=== PATIENT | male | born 1985 | race Asian ===

== ENCOUNTER 2019-01-18 14:11 | Emergency (ER) | payer MEDICAID, OTHER ==
[~2019-01-18] VITALS: Ht 175.3 cm; Wt 79.4 kg
[2019-01-18 15:13] VITALS: BP 140/73
[2019-01-18] MEDS ORDERED: LORazepam 0.5 MG TAB PO ONE (15:45)
== END 2019-01-18 16:04 | disposition home or self-care (01) ==
LOC: ER 14:11
DX: F41.9 Anxiety disorder, unspecified (principal); I10 Essential (primary) hypertension

== ENCOUNTER 2019-01-28 22:19 | Emergency (ER) | payer OTHER ==
[~2019-01-28] VITALS: Ht 175.3 cm; Wt 81.6 kg
[2019-01-28 22:38] VITALS: BP 140/99
== END 2019-01-29 00:47 | disposition left against medical advice (07) ==
LOC: ER 22:20
DX: F41.9 Anxiety disorder, unspecified (principal); Z76.0 Encounter for issue of repeat prescription; Z53.21 Procedure and treatment not carried out due to patient leaving prior to being seen by health care provider

== ENCOUNTER 2019-01-29 04:36 | Emergency (ER) | payer OTHER ==
[~2019-01-29] VITALS: Ht 175.3 cm; Wt 81.6 kg
[2019-01-29 04:45] VITALS: BP 138/100
== END 2019-01-29 09:00 | disposition home or self-care (01) ==
LOC: ER 04:36
DX: F41.9 Anxiety disorder, unspecified (principal); Z76.0 Encounter for issue of repeat prescription

== ENCOUNTER 2019-06-28 05:44 | Emergency (ER) | payer OTHER ==
[~2019-06-28] VITALS: Ht 175.3 cm; Wt 83.9 kg
[2019-06-28] MEDS ORDERED: KETOROLAC TROMETH 60MG/2ML VIAL IM ONE (08:00)
[2019-06-28 08:22] VITALS: BP 142/98
[2019-06-28] MEDS ORDERED: LORazepam 0.5 MG TAB PO ONE (08:30)
== END 2019-06-28 09:45 | disposition home or self-care (01) ==
LOC: ER 05:44
DX: F41.9 Anxiety disorder, unspecified (principal)

== ENCOUNTER 2022-08-28 14:48 | Emergency (ER) | payer OTHER ==
[~2022-08-28] VITALS: Ht 180.3 cm; Wt 92.0 kg
[2022-08-28] MEDS ORDERED: LORazepam 2MG/ML-1ML VIAL IM ONE (17:30)
[2022-08-28 17:44] VITALS: BP 131/83
== END 2022-08-28 18:41 | disposition home or self-care (01) ==
LOC: ER 14:48
DX: F41.9 Anxiety disorder, unspecified (principal); Z88.8 Allergy status to other drugs, medicaments and biological substances
CPT/HCPCS: 93005; 96372; 99283; J2060

== ENCOUNTER 2022-10-11 11:27 | Emergency (ER) | payer OTHER ==
[~2022-10-11] VITALS: Ht 180.3 cm; Wt 87.7 kg
[2022-10-11] MEDS ORDERED: LORazepam 0.5 MG TAB PO ONE (13:00)
[2022-10-11] MEDS ORDERED: MAALOX PLUS or MAALOX 30 ML PO ONE (13:00)
[2022-10-11 13:02] VITALS: BP 142/78
[2022-10-11 14:49] LABS: Eosinophils # (auto) 0.1 10 ^3/uL (0-0.8)
[2022-10-11 14:51] LABS: Basophils # (auto) 0 10 ^3/uL (0-0.2); Basophils % (auto) 0.5 % (0.0-2.0); Hematocrit 50.2 % (41.0-53.0); Hemoglobin 17.9 g/dL (13.5-17.5); Lymphocytes # (auto) 1.6 10 ^3/uL (0.4-5.4); Lymphocytes % (auto) 19.8 % (10.0-50.0); Mean Corpuscular Hemoglobin 31.3 pg (28.0-32.0); Mean Corpuscular Hgb Conc. 35.6 g/dL (32.0-36.0); Monocytes # (auto) 0.4 10 ^3/uL (0-1.3); Monocytes % (auto) 5.3 % (0.0-12.0); Neutrophils # (auto) 6.1 10 ^3/uL (1.6-8.6); Neutrophils % (auto) 73.4 % (37.0-80.0); Nucleated Red Blood Cells % 0.1 %; Red Blood Cells 5.71 10^6/uL (4.5-5.90); White Blood Cell 8.3 10^3/uL (4.4-10.8)
[2022-10-11 15:09] LABS: Albumin 4.7 g/dL (3.4-5.0); Calcium 9.6 mg/dL (8.5-10.1); Potassium 4.1 mmol/L (3.5-5.1)
[2022-10-11 15:13] LABS: BUN/Creatinine Ratio 9.2 (10.0-20.0); Bilirubin, Total 0.9 mg/dL (0.2-1.0)
[2022-10-11] MEDS ORDERED: SUCR1TAB22 OR (15:38)
[2022-10-11] MEDS ORDERED: HYDR25CA PO (15:38)
== END 2022-10-11 15:45 | disposition home or self-care (01) ==
LOC: ER 11:27
DX: F41.8 Other specified anxiety disorders (principal); K21.9 Gastro-esophageal reflux disease without esophagitis
CPT/HCPCS: 36415; 80053; 84484; 85025; 93005

== ENCOUNTER 2023-06-13 13:57 | Emergency (ER) | payer OTHER ==
[~2023-06-13] VITALS: Ht 175.3 cm; Wt 79.8 kg
[~2023-06-13 13:57] MED LIST: HYDR25CA PO; SUCR1TAB22 OR
[2023-06-13 15:12] VITALS: BP 102/75; PULSE 91; RESP 18; TEMP 97.3; O2SAT 96
[2023-06-13] MEDS ORDERED: SUCR1TAB22 OR (15:29)
[2023-06-13] MEDS ORDERED: HYDR50CA PO (15:29)
== END 2023-06-13 15:33 | disposition home or self-care (01) ==
LOC: ER 13:57
DX: F41.9 Anxiety disorder, unspecified (principal); Z76.0 Encounter for issue of repeat prescription; Z79.899 Other long term (current) drug therapy

== ENCOUNTER 2023-10-30 01:01 | Emergency (ER) | payer MEDICAID ==
[~2023-10-30] VITALS: Ht 175.3 cm; Wt 76.6 kg
[~2023-10-30 01:01] MED LIST changes: +HYDR50CA PO; -SUCR1TAB22 OR; +SUCR1TAB31 OR
[2023-10-30 01:14] VITALS: BP 142/94; PULSE 93; RESP 18; TEMP 98.6; O2SAT 98
[2023-10-30] MEDS ORDERED: SUCR1TAB31 PO (03:49)
[2023-10-30] MEDS ORDERED: HYDR50CA2 PO (03:49)
== END 2023-10-30 04:01 | disposition home or self-care (01) ==
LOC: ER 01:04
DX: F41.9 Anxiety disorder, unspecified (principal); K21.9 Gastro-esophageal reflux disease without esophagitis; F32.9 Major depressive disorder, single episode, unspecified; F15.90 Other stimulant use, unspecified, uncomplicated; Z76.0 Encounter for issue of repeat prescription; Z79.899 Other long term (current) drug therapy

== ENCOUNTER 2023-11-21 22:41 | Emergency (ER) | payer MEDICAID ==
[~2023-11-21] VITALS: Ht 175.3 cm; Wt 75.3 kg
[~2023-11-21 22:41] MED LIST changes: +HYDR50CA2 PO; +SUCR1TAB31 PO
[2023-11-22] MEDS: SUCRALFATE 1 GM/10 ML ORAL SUSP PO ONE (01:41)
[2023-11-22] MEDS: ALPRAZolam 0.5 MG TAB PO ONE (01:41)
[2023-11-22 01:45] VITALS: BP 142/100; PULSE 76; RESP 16; O2SAT 96
== END 2023-11-22 02:27 | disposition home or self-care (01) ==
LOC: ER 22:41
DX: F41.9 Anxiety disorder, unspecified (principal); R10.13 Epigastric pain; F32.9 Major depressive disorder, single episode, unspecified; K21.9 Gastro-esophageal reflux disease without esophagitis; F15.90 Other stimulant use, unspecified, uncomplicated; Z88.0 Allergy status to penicillin; Z79.899 Other long term (current) drug therapy

== ENCOUNTER 2023-11-25 20:29 | Emergency (ER) | payer MEDICAID ==
[~2023-11-25] VITALS: Ht 188 cm; Wt 66.8 kg
[2023-11-25 20:29] VITALS: BP 138/92; PULSE 118; RESP 18; O2SAT 95
[2023-11-25] MEDS ORDERED: SUCR1TAB31 OR (22:30)
== END 2023-11-25 22:41 | disposition home or self-care (01) ==
LOC: ER 20:29
DX: K21.9 Gastro-esophageal reflux disease without esophagitis (principal); F15.10 Other stimulant abuse, uncomplicated; F41.9 Anxiety disorder, unspecified; F32.A Depression, unspecified; Z76.0 Encounter for issue of repeat prescription; Z88.0 Allergy status to penicillin; Z79.899 Other long term (current) drug therapy

== ENCOUNTER 2023-12-11 14:52 | Emergency (ER) | payer MEDICAID ==
[~2023-12-11] VITALS: Ht 172.7 cm; Wt 65.0 kg
[2023-12-11 16:36] VITALS: BP 120/74; PULSE 101; RESP 17; TEMP 98.9; O2SAT 98
[2023-12-11] MEDS ORDERED: NAPR-746 PO (17:17)
[2023-12-11] MEDS ORDERED: BACDST PO (17:17)
== END 2023-12-11 17:33 | disposition home or self-care (01) ==
LOC: ER 14:52
DX: L02.212 Cutaneous abscess of back [any part, except buttock and flank] (principal); K21.9 Gastro-esophageal reflux disease without esophagitis; F41.9 Anxiety disorder, unspecified; F32.9 Major depressive disorder, single episode, unspecified; F15.90 Other stimulant use, unspecified, uncomplicated; Z88.0 Allergy status to penicillin; Z79.899 Other long term (current) drug therapy

== ENCOUNTER 2024-04-15 07:22 | Emergency (ER) | payer MEDICAID ==
[~2024-04-15] VITALS: Ht 175.3 cm; Wt 75.0 kg
[~2024-04-15 07:22] MED LIST changes: +BACDST PO; +NAPR-746 PO
--- NOTE | 2024-04-15 07:42 | ED.PDOC ---
History of Present Illness HPI Comments 38 y.o male presents to the ED for an evaluation of multiple complaints. Patient states unspecified chest and abdominal pain associated with SOB but also mentions coming in for a medication refill of Lorazepam and is requesting pain medications. Patient has a medical history of anxiety, GERD, and depression. He reports currently being homeless. No other complaints at this time. Chief Complaint: Abdominal Pain Time Seen by MD: 07:36 Primary Care Provider: NONE Reviewed Notes: Nurses Notes, Medications, Allergies Allergies: Coded Allergies: Penicillins (Verified Allergy, Unknown, 11/21/23) Home Meds Active Scripts Naproxen (Naproxen) 500 Mg Tab, 500 MG PO BID, #30 TAB Prov:DERECK JACK 12/11/23 Sulfamethoxazole W/Trimethopri (Bactrim Ds Tablet) 1 Tab Tb, 1 TAB PO BID for 10 Days, #20 TAB Prov:DERECK JACK 12/11/23 Sucralfate (CARAFATE) 1 Gm Tab, 1 GM OR BID PRN, #30 TAB 0 Refills Prov:PAVAN YUNG 11/25/23 Hydroxyzine Pamoate (Hydroxyzine Pamoate) 50 Mg Cap, 1 CAP PO Q6HPRN, #12 CAP 0 Refills Prov:PAVAN YUNG 10/30/23 Sucralfate (CARAFATE) 1 Gm Tab, 1 GM PO BID, #30 TAB 0 Refills Prov:PAVAN YUNG 10/30/23 Hydroxyzine Pamoate (Vistaril) 50 Mg Cap, 1 CAP PO BID PRN, #20 CAP Prov:DERECK JACK 06/13/23 Sucralfate (CARAFATE) 1 Gm Tab, 1 GM OR BIDP PRN for 15 Days, #30 TAB Prov:DERECK JACK 06/13/23 Hydroxyzine Pamoate (Vistaril) 25 Mg Cap, 1 CAP PO BID PRN for 10 Days, #20 CAP 1 Refill Prov:GIRMA URIAS NP 10/11/22 Mode of Arrival: Ambulatory Timing: Came on: Gradually Duration: Since onset Past Medical History PAST MEDICAL HISTORY: Anxiety, Depression, GERD Surgical History: Denies all surgeries Family History Family History: Unknown Social History Smoker: Non-Smoker Alcohol: Occasionally Drugs: Methamphetamine Lives In: Homeless Constitutional: denies: chills, diaphoresis, fatigue, fever, malaise, sweats, weakness, others EENTM: denies: blurred vision, double vision, ear bleeding, ear discharge, ear drainage, ear pain, ear ringing, eye pain, eye redness, hearing loss, mouth pain, mouth swelling, nasal discharge, nose bleeding, nose congestion, nose pain, photophobia, tearing, throat pain, throat swelling, voice changes, others Respiratory: reports: shortness of breath; denies: cough, hemoptysis, orthopnea, SOB at rest, SOB with excertion, stridor, wheezing, others Cardiovascular: reports: chest pain; denies: dizzy spells, diaphoresis, Dyspnea on exertion, edema, irregular heart beat, left arm pain, lightheadedness, palpitations, PND, syncope, others Gastrointestinal: denies: abdomen distended, abdominal pain, blood streaked bowels, constipated, diarrhea, dysphagia, difficulty swallowing, hematemesis, melena, nausea, poor appetite, poor fluid intake, rectal bleeding, rectal pain, vomiting, others Genitourinary: denies: burning, dysuria, flank pain, frequency, hematuria, incontinence, penile discharge, penile sore, pain, testicle pain, testicle swelling, urgency, others Neurological: denies: dizziness, fainting, headache, left sided numbness, left sided weakness, numbness, paresthesia, pre-existing deficit, right sided numbness, right sided weakness, seizure, speech problems, tingling, tremors, weakness, others Musculoskeletal: denies: back pain, gout, joint pain, joint swelling, muscle pain, muscle stiffness, neck pain, others Integumetry: denies: bruises, change in color, change in hair/nails, dryness, laceration, lesions, lumps, rash, wounds, others Allergic/Immunocompromised: denies: Difficulty Healing, Frequent Infections, Hives, Itching, others Hematologic/Lymphatic: denies: anemia, blood clots, easy bleeding, easy bruising, swollen glands, others Endocrine: denies: excessive hunger, excessive sweating, excessive thirst, excessive urination, flushing, intolerance to cold, intolerance to heat, unexplained weight gain, unexplained weight loss, others Psychiatric: reports: anxiety; denies: bipolar disorder, depression, hopeless, panic disorder, schizophrenia, sleepless, suicidal, others All Other Systems: Reviewed and Negative Physical Exam General Appearance: Moderate Distress HEENT: Normal ENT Inspection, Pharynx Normal, TMs Normal Neck: Full Range of Motion, Non-Tender, Normal, Normal Inspection Respiratory: Chest Non-Tender, Lungs Clear, No Accessory Muscle Use, No Respiratory Distress, Normal Breath Sounds Cardiovascular: No Edema, No JVD, No Murmur, No Gallop, Normal Peripheral Pulses, Regular Rate/Rhythm Breast Exam: Deferred Gastrointestinal: No Organomegaly, Non Tender, No Pulsatile Mass, Normal Bowel Sounds, Soft Genitalia: Deferred Pelvic: Deferred Rectal: Deferred Extremities: No calf tenderness, Normal capillary refill, Normal inspection, Normal range of motion, Non-tender, No pedal edema Musculoskeletal : Apperance: Normal Neurologic: Alert, incubator operator II-XII nml as Tested, No Motor Deficits, Normal Affect, Normal Mood, No Sensory Deficits Cerebellar Function: Normal Reflexes: Normal Skin: Dry, Normal Color, Warm Peripheral Pulses: 3+ Radial (R), 3+ Radial (L) Lymphatic: No Adenopathy Was a procedure done? Was a procedure done?: No Differential Dx Considerations may include: Viral syndrome, anxiety, gastrointestinal X-Ray, Labs, Meds, VS Vital Signs Date Time Temp Pulse Resp B/P (MAP) Pulse Ox O2 Delivery O2 Flow Rate FiO2 04/15/24 10:47 98.2 111 16 111/61 (78) 98 98.2 04/15/24 10:14 98.2 152 17 126/75 (92) 100 98.2 04/15/24 07:59 135 18 131/85 (100) 98 04/15/24 07:59 135 18 98 Room Air 04/15/24 07:33 98.0 62 20 111/80 (90) 97 Current Medications Medications (Trade) Dose Ordered Sig/Freddie Route Start Time Stop Time Status Last Admin Belladonna Alkaloids/ Phenobarbital ( Elixir) 10 ml ONCE ONCE PO 04/15/24 07:45 04/15/24 07:46 DC 04/15/24 07:56 Al Hydrox/Mg Hydrox/Simethicone (Maalox Plus) 30 ml ONCE ONCE PO 04/15/24 07:45 04/15/24 07:46 DC 04/15/24 07:56 Lidocaine HCl (Xylocaine 2% Viscous) 15 ml ONCE ONCE PO 04/15/24 07:45 04/15/24 07:46 DC 04/15/24 07:55 Lorazepam (Ativan Tablet) 1 mg ONCE ONCE PO 04/15/24 10:15 04/15/24 10:16 DC 04/15/24 10:18 Patient alert. History of anxiety. Vitals stable. Answering all questions. Ambulating. Reviewed his previous visit. Physical examination pristine. Denies suicidal or homicidal ideation. Was given GI cocktail. Counseled patient on effects of smoking cigarettes for 15 minutes. Explained to the patient. Was told to follow up with his primary care physician. Was told to come back if there is any problem. Time of 1ST Reevaluation: 07:39 Reevaluation 1ST: Improved Patient Education/Counseling: Diagnosis, Treatment, Prognosis Family Education/Counseling: No Family Present Departure 1 Departure Time of Disposition: 07:45 Impression: Primary Impression: Methamphetamine abuse Additional Impressions: Chronic GERD Anxiety Disposition: 01 HOME / SELF CARE / HOMELESS Condition: Good Discharged With: Self Critical Care Note Critical Care Time?: No Stability Stability form required: No Heart Score Heart Score: Heart Score Response (Comments) Value History N/A 0 EKG Normal 0 Age <45 0 Risk Factors No known risk factors 0 Troponin N/A 0 Total 0 I personally scribed for JANETH ARNDT MD ([email or web address]) on 04/15/24 at 07:42. Electronically submitted by Sherine Timmons ([facility]). JANETH ARNDT MD Apr 15, 2024 07:42
[2024-04-15] MEDS: LIDOCAINE VISCOUS 2% 15ML UD PO ONE (07:55)
[2024-04-15] MEDS: DONNATAL 5ml ORAL Elix (BELLADONNA ALK-PHENOBARB) PO ONE (07:56)
[2024-04-15] MEDS: MAALOX PLUS or MAALOX 30 ML PO ONE (07:56)
[2024-04-15] MEDS: LORazepam 0.5 MG TAB PO ONE (10:18)
[2024-04-15 10:47] VITALS: BP 111/61; PULSE 111; RESP 16; TEMP 98.2; O2SAT 98
== END 2024-04-15 10:49 | disposition home or self-care (01) ==
LOC: ER 07:22
DX: K21.9 Gastro-esophageal reflux disease without esophagitis (principal); F15.10 Other stimulant abuse, uncomplicated; F41.9 Anxiety disorder, unspecified; F32.9 Major depressive disorder, single episode, unspecified; Z76.0 Encounter for issue of repeat prescription; Z59.00 Homelessness unspecified; Z88.0 Allergy status to penicillin; Z79.899 Other long term (current) drug therapy